=== PATIENT | female | born 1965 | race Caucasian/White ===

== ENCOUNTER → 2017-04-20 | Outpatient (CLI) | payer OTHER ==
[~2017-04-20] MED LIST: BUPR-102 PO; CLX/20 PO; DOCU100C; LISI-461 PO; MULT-506 PO; NRN300 PO; OMEG10002 PO; OMEP40CA PO; RANI150T85 PO; TRAZ50TA35 PO; pericolace
--- NOTE | 2017-04-20 11:12 | DIAGNOSTIC IMAGING REPORT ---
ADDENDUM Review of the images with Dr. Leonard confirms the fact that the catheter entering the low thoracic region extends superiorly to the level of T11. This is a separate catheter as compared to the electrode extending to the mid thoracic region. Electronically signed by: Tawanda Elizabeth M.D. 04/24/2017 9:39 AM Dictated Date/Time: 04/24/2017 9:37 AM ORIGINAL REPORT THORACIC SPINE 2 VIEWS CLINICAL HISTORY: Thoracic back pain. FINDINGS: AP and lateral views of the thoracic spine are correlated with CT scan of the thoracic spine dated 01/29/2014. The skeletal structures are osteopenic. There is no radiographic evidence of fracture or malalignment. Vertebral body height and alignment are maintained throughout the thoracic spine. The transverse processes and pedicles are grossly intact as seen on the frontal view. Intrathecal leads enter the central canal and the lower thoracic region. These terminate at the level of T7. The catheter leads are intact as imaged. The disc spaces are maintained. Cholecystectomy clips are identified in the right upper quadrant. The imaged lung parenchyma appears clear. IMPRESSION: 1. No acute bony abnormality is seen involving the thoracic spine. 2. Intrathecal catheter leads are in place as above. Dictated: 04/20/2017 10:12 AM Transcribed: 04/20/2017 11:12 AM [place] Electronically signed by: Andrea Pedroza M.D. 04/20/2017 11:18 AM Dictated Date/Time: 04/20/2017 10:12 AM
== END | disposition home or self-care (01) ==
LOC: C.RADBC 09:45
PROVIDERS: ATTEND Anesthesiology
DX: M54.6 Pain in thoracic spine (principal)

== ENCOUNTER 2018-12-09 07:35 | Observation (INO) ==
--- NOTE | 2018-12-06 07:58 | Anesthesiology Consultation ---
Date of Service December 06, 2018 Assessment & Plan (1) Encounter for pre-operative examination: Chart Review Chart Review: Acceptable Risk for Surgery and Patient NOT seen in Pre Admission Testing Consults Requested none History Surgery Operation Date: 12/09/18 08:40 Proposed Procedures p Left Breast Lumpectomy with Needle Localization and Left [place] Lymph Node Biopsy - Christiano Bradley MD, FACS Height/Weight Height: 5 ft 6 in Weight: 99.79 kg Allergies Allergy/AdvReac Type Severity Reaction Status Date / Time methadone AdvReac paresthesia Verified 12/05/18 14:51 s Medications Home Medications Medication Instructions Recorded Confirmed Last Taken bupropion HCl SR 150 mg tablet,12 150 mg PO QPM 01/07/18 12/05/18 04/22/18 23:45 hr sustained-release gabapentin 300 mg capsule 300 mg PO BID cap 01/07/18 12/05/18 04/22/18 23:45 lisinopril 10 mg tablet 10 mg PO QAM 01/07/18 12/05/18 04/22/18 14:00 omega-3 fatty acids 1,000 mg 1,000 - 2,000 mg PO BID cap 01/07/18 12/05/18 04/02/18 10:00 capsule omeprazole 40 mg capsule,delayed 40 mg PO QAM 01/07/18 12/05/18 04/22/18 14:00 release ranitidine 150 mg tablet 150 mg PO QPM 01/07/18 12/05/18 04/22/18 23:45 trazodone 150 mg tablet 150 mg PO HS tab 01/07/18 12/05/18 04/22/18 23:45 ascorbic acid (vitamin C) [Vitamin 1,000 mg PO QAM 04/02/18 12/05/18 04/22/18 14:00 C] bupropion HCl 200 mg PO QAM 04/02/18 12/05/18 04/22/18 14:00 docusate sodium [Dulcolax Stool 100 mg PO BID 04/02/18 12/05/18 04/22/18 23:45 Softener (dss)] escitalopram 10 mg tablet 20 mg PO QAM tab 06/11/18 12/05/18 Unknown ibuprofen 600 mg tablet 600 mg PO BID tab 06/11/18 12/05/18 Unknown multivitamin capsule 1 cap PO HS 06/11/18 12/05/18 Unknown morphine concentrate 1 unit INJ UD 12/05/18 12/05/18 Unknown Past Medical History Medical History Sleep apnea (Chronic) CPAP Migraine (Chronic) HX Hiatal hernia (Chronic) Osteoarthritis (Chronic) Intractable low back pain (Chronic) Sacroiliitis (Chronic) Tobacco abuse (Chronic) Presence of intrathecal pump (Resolved) History of suicide attempt (Resolved) Intentional overdose requiring intubation 2014 Depression (Chronic) Hypertension (Chronic) Anxiety (Chronic) GERD (gastroesophageal reflux disease) (Chronic) Degenerative joint disease (Chronic) Osteoporosis (Chronic) Breast cancer (Acute) left Arthritis Degenerative disc disease High cholesterol History of bronchitis Spinal stenosis Past Family History Family History Brother Family history of diabetes mellitus Diabetes 1/2 brother Grandmother Diabetes Mother Hypertension Heart disease Grandmother (Paternal) Breast cancer Father Heart disease Past Surgical History Surgical History Nausea and vomiting after administration of anesthetic agent Status post insertion of spinal cord stimulator (Resolved) NO LONGER FUNCTIONING History of lumbar laminectomy (Resolved) X 2 History of cholecystectomy (Resolved) History of tonsillectomy (Resolved) History of appendectomy (Resolved) H/O myringotomy History of bilateral tubal ligation History of colonoscopy History of esophagogastroduodenoscopy (EGD) S/P insertion of intrathecal pump 2013 and replaced in Apr 2018 Social History Smoking Status: Current every day smoker tobacco type: cigarettes Smoking cigarettes per day: 3-4 daily x 40 years Do You Dip or Chew Tobacco: No Hx Alcohol Use: Yes Alcohol type: beer alcohol intake frequency: holidays/special occasions only Hx Substance Use: No Testing Laboratory Results Laboratory Tests 12/04/18 12/04/18 14:23 14:23 WBC 6.16 Hgb 14.3 Plt Count 192 Sodium 142 Potassium 4.4 Chloride 107 Carbon Dioxide 31 BUN 14 Creatinine 0.80 Glucose 86 Electrocardiogram Date: 04/08/18 Normal sinus rhythm, rate 60 bpm Normal ECG No previous ECGs available Confirmed by El Mathis ([id number]) on 04/08/2018 8:27:52 PM
[~2018-12-09 07:35] MED LIST changes: -BUPR-102 PO; +CEFAZOLIN 2000MG 2,000 MG/15 ML SYR IV SCH; -CLX/20 PO; -DOCU100C; -LISI-461 PO; +LR 15ML/HR IV SCH; -MULT-506 PO; -NRN300 PO; -OMEG10002 PO; -OMEP40CA PO; -RANI150T85 PO; -TRAZ50TA35 PO; -pericolace
[2018-12-09] MEDS ORDERED: fentaNYL citrate 100 MCG/2 ML VIAL ONE (08:42)
[2018-12-09] MEDS ORDERED: MIDAZOLAM HCL 1 MG/ML 2ML VIAL ONE (08:42)
--- NOTE | 2018-12-09 09:05 | Nuclear Medicine Report ---
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 Topical anesthesia was applied to the left areola. Five Intradermal periareolar injections were performed utilizing a total dose of 0.5 mCi of techneti um 99m Lymphoseek. The patient was sent to the operating room for intraoperative localization. IMPRESSION: Successful left breast lymphoscintigraphy injection. Electronically signed by: Mello Acosta M.D. 12/09/2018 9:03 AM
[2018-12-09] MEDS ORDERED: BUPIVACAINE 0.5 % 5 MG/1 ML MPF 30ML VIAL ONE (09:30)
[2018-12-09] MEDS ORDERED: ePHEDrine sulfate 50 MG/ML AMP IV PRN (09:52)
[2018-12-09] MEDS ORDERED: HYDROmorphone INJ 2 MG/ML SYR/VIAL IV PRN (09:52)
[2018-12-09] MEDS ORDERED: ATROPINE SULFATE 0.1 MG/ML 10ML SYR IV PRN (09:52)
[2018-12-09] MEDS ORDERED: ONDANSETRON INJ 2 MG/ML 2 ML VIAL IV PRN ×2 (09:52→12:18)
[2018-12-09] MEDS ORDERED: PROMETHAZINE HCL 12.5 MG in SODIUM CHLORIDE 0.9% 50 ML IV PRN ×2 (09:52→12:18)
[2018-12-09] MEDS ORDERED: fentaNYL citrate 100 MCG/2 ML VIAL IV PRN (09:52)
[2018-12-09] MEDS ORDERED: METOCLOPRAMIDE HCL INJ 5 MG/ML 2 ML VIAL IV PRN (09:52)
--- NOTE | 2018-12-09 09:53 | History & Physical Bridge Note ---
Date of Service December 09, 2018 History & Physical Bridge Note I have examined the patient, reviewed the History & Physical and in the interval since the performance of the History & Physical I have noted the following changes of clinical significance: no changes noted
[2018-12-09] MEDS ORDERED: DEXAMETHASONE SOD INJ 4 MG/ML VIAL ONE (10:27)
[2018-12-09] MEDS ORDERED: NEOSTIGMINE METHYLSULFATE 5 MG/5 ML SYR ONE (10:27)
[2018-12-09] MEDS ORDERED: ROCURONIUM BROMIDE 10 MG/ML 5 ML VIAL ONE (10:27)
[2018-12-09] MEDS ORDERED: PROPOFOL IV EMULSION 10 MG/ML 20 ML VIAL IV ONE (10:27)
[2018-12-09] MEDS ORDERED: LIDOCAINE HCL 2% 2 ML VIAL/AMP(20MG/ML) INFIL ONE (10:27)
[2018-12-09] MEDS ORDERED: GLYCOPYRROLATE 0.2 MG/ML VIAL ONE (10:27)
[2018-12-09] MEDS ORDERED: ONDANSETRON INJ 2 MG/ML 2 ML VIAL ONE (10:27)
[2018-12-09] MEDS ORDERED: METHYLENE BLUE 0.5% 10 ML VIAL ONE (10:55)
--- NOTE | 2018-12-09 11:11 | Operative Report ---
PG Post Operative Report Pre & Post Diagnosis Operation Date: 12/09/18 10:30 Pre-Op Diagnosis: Intraductal Carcinoma in Situ Left Breast Post-Op Diagnosis: Intraductal Carcinoma in Situ Left Breast Procedure Operation Date: 12/09/18 10:30 Actual Procedures p Left Breast Lumpectomy with Needle Localization and Left [place] Lymph Node Biopsy(Left) - Christiano Bradley MD, FACS Surgeon Christiano Bradley MD, FACS Manager Purchasing Amara Horton Estimated Blood Loss 10 Findings Consistent with Post-Op Diagnosis Specimens Lt breast tissue and Lymph node Description of Procedure see dictation I attest to the content of the Intraoperative Record and any orders documented therein. Any exceptions are noted below.
[2018-12-09] MEDS ORDERED: METHYLENE BLUE 0.5% 10 ML VIAL TOP STA (11:12)
[2018-12-09] MEDS ORDERED: ACETAMINOPHEN 1,000 MG/100 ML VIAL IV ONE (11:19)
--- NOTE | 2018-12-09 11:34 | Operative Report ---
DATE OF OPERATION: 12/09/2018 NAME OF OPERATION: Left lumpectomy with sentinel lymph node biopsy. PREOPERATIVE DIAGNOSIS: Ductal carcinoma in situ, left breast. POSTOPERATIVE DIAGNOSIS: Ductal carcinoma in situ, left breast. STAFF SURGEON: Christiano Bradley MD SOFTBALL WINDER: Quentin Horton PA-C. ANESTHESIA: General. DESCRIPTION OF PROCEDURE: The patient was brought in the operating room and placed on the operating table in supine position. Left arm was extended on an arm board. My office assistant receptionist helped with prepping, draping, excision of the breast tissue and lymph node and also closure of the wounds. The patient had previously undergone needle localization left breast and also injection for sentinel lymph node biopsy. Initially, incision was made in the left axilla using 0.5% plain Marcaine to anesthetize skin and subcutaneous tissue in the axilla and breast. Dissection was carried down deeply in the left axilla, identifying the lymph node and sending it for frozen section. Frozen section was negative. During the frozen section, we performed lumpectomy. Elliptical incision was made around the needle which had been placed medially carrying dissection well around the needle. The tissue was marked, the needle and skin were anterior, long silk lateral, short silk medial and then a plain suture was inferior. This tissue was placed into the Faxitron. The imaged sent to Dr. Keane. The specimen was within the tissue. I took down additional superior and inferior tissue, marking it with long silk lateral, short silk medial, methylene blue new margin. We placed clips deep in the tissue at the level of the area of suspicion. Deep tissue was reapproximated in both wounds using 2-0 plain suture. Skin reapproximated in the breast using subcuticular 4-0 Monocryl with Steri-Strips. The left axilla skin was reapproximated using 4-0 nylon suture. The patient was transferred to recovery room in stable condition. I attest to the content of the Intraoperative Record and any orders documented therein. Any exception s are noted below.
[2018-12-09] MEDS ORDERED: ACETAMINOPHEN 1000 MG/100 ML IV IV ONE (11:38)
--- NOTE | 2018-12-09 12:11 | Anesthesiology Progress Note ---
Date of Service December 09, 2018 Anesthesia Post Procedure Vital Signs Vital Signs: Temp Pulse Pulse Resp BP BP Pulse Ox 12/09/18 12:00 36.4 C L 68 19 115/70 92 12/09/18 11:50 71 14 120/74 96 12/09/18 11:40 71 16 124/77 100 12/09/18 11:30 75 12 128/80 100 12/09/18 11:24 36.6 C 82 17 127/85 100 12/09/18 09:25 37.1 C 68 16 120/81 97 Pain Intensity Bilateral Back: Pain Intensity: 4 Left Breast: Pain Intensity: 3 Transfer of Care Handoff Completed per policy Notes Mental Status: alert / awake / arousable and participated in evaluation Patient Amnestic to Procedure: Yes Nausea / Vomiting: adequately controlled Pain: adequately controlled Airway Patency, RR, SpO2: stable & adequate BP & HR: stable & adequate Hydration State: stable & adequate Anesthetic Complications: no major complications apparent
[2018-12-09] MEDS ORDERED: PROMETHAZINE HCL 25 MG in SODIUM CHLORIDE 0.9% 50 ML IV PRN (12:18)
[2018-12-09] MEDS ORDERED: HYDROmorphone INJ 1 MG/ML SYRINGE IV PRN (12:18)
[2018-12-09] MEDS ORDERED: SODIUM CHLORIDE 0.9% 1000ML 1,000 ML IV SCH (12:18)
[2018-12-09] MEDS ORDERED: HYDROCODONE/ACETAMOPHEN 5/325MG TAB PO PRN (12:18)
[2018-12-09] MEDS ORDERED: IBUPROFEN 600 MG TAB PO PRN (12:18)
[2018-12-09] MEDS ORDERED: HYDROmorphone INJ 0.5 MG/0.5 ML SYR IV PRN (12:18)
--- NOTE | 2018-12-09 13:39 | Hospitalist Consultation ---
Date of Consultation December 09, 2018 Assessment & Plan (1) S/P breast lumpectomy: -POD# 0 left breast lumpectomy by Dr. 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 We will follow the patient with you during their hospital stay. You can reach a member of the [facility] Hospitalist Team 02/10 via pager @ [phone]. Supervising Physician Co-Signing Physician Notes I have seen and examined nurse practitioner and would like to comment that This is a patient under general surgery service Dr. Bradley with hospitalist medicine as consult service who on 12/09/18 had: Left lumpectomy with sentinel lymph node biopsy because of Ductal carcinoma in situ of left breast Medicine consult will continue to follow the patient overnight and management of pain control and blood pressure and will place labs for tomorrow Continuing home medications for other health issues as documented by nurse practitioner including medications for history of depression and anxiety such as bupropion and escitalopram and gabapentin, currently mood is stable. On Physical Exam General: no acute distress, verbal, able to eat crackers at the bedside Eyes: Extraocular movements intact HEENT: external exam normal Heart: regular rate and rhythm Lungs: clear to auscultation bilaterally Chest dressing over left chest Abdomen: soft, nontender, positive bowel sounds Extremities: moves extremities Neuro: alert and oriented to person, time and place Psych: normal affect My colleague Dr. Valdes will be following the patient as hospitalist physician starting on 12/10/2018 History of Present Illness Reason for Consultation: Post Op Medical Management Requesting Physician: Dr. Bradley Attending Physician: Dr. Hernandez History of Present Illness 53 year old female who is s/p left breast lumpectomy today by Dr. Bradley. Postoperatively, the patient is doing well. She reports her pain is well controlled. She denies chest pain shortness of breath. No abdominal pain or nausea. Denies lightheadedness, dizziness, diaphoresis. She has not voided since surgery. Allergies Allergy/AdvReac Type Severity Reaction Status Date / Time methadone AdvReac paresthesia Verified 12/09/18 09:18 s Home Medications Home Medications Medication Instructions Recorded Confirmed Type bupropion HCl SR 150 mg tablet,12 150 mg PO QPM 01/07/18 12/09/18 History hr sustained-release gabapentin 300 mg capsule 300 mg PO BID cap 01/07/18 12/05/18 History lisinopril 10 mg tablet 10 mg PO QAM 01/07/18 12/05/18 History omega-3 fatty acids 1,000 mg 1,000 - 2,000 mg PO BID cap 01/07/18 12/05/18 History capsule omeprazole 40 mg capsule,delayed 40 mg PO QAM 01/07/18 12/05/18 History release ranitidine 150 mg tablet 150 mg PO QPM 01/07/18 12/05/18 History trazodone 150 mg tablet 150 mg PO HS tab 01/07/18 12/05/18 History ascorbic acid (vitamin C) [Vitamin 1,000 mg PO QAM 04/02/18 12/09/18 History C] bupropion HCl 200 mg PO QAM 04/02/18 12/05/18 History docusate sodium [Dulcolax Stool 100 mg PO BID 04/02/18 12/09/18 History Softener (dss)] escitalopram 10 mg tablet 20 mg PO QAM tab 06/11/18 12/05/18 History ibuprofen 600 mg tablet 600 mg PO BID tab 06/11/18 12/09/18 History multivitamin capsule 1 cap PO HS 06/11/18 12/05/18 History morphine concentrate 1 unit INJ UD 12/05/18 12/09/18 History Patient History Medical History Sleep apnea (Chronic) CPAP Migraine (Chronic) HX Hiatal hernia (Chronic) Osteoarthritis (Chronic) Intractable low back pain (Chronic) Sacroiliitis (Chronic) Tobacco abuse (Chronic) Presence of intrathecal pump (Resolved) History of suicide attempt (Resolved) Intentional overdose requiring intubation 2014 Depression (Chronic) Hypertension (Chronic) Anxiety (Chronic) GERD (gastroesophageal reflux disease) (Chronic) Degenerative joint disease (Chronic) Osteoporosis (Chronic) Breast cancer (Acute) left Surgical History Nausea and vomiting after administration of anesthetic agent Status post insertion of spinal cord stimulator (Resolved) NO LONGER FUNCTIONING History of lumbar laminectomy (Resolved) X 2 History of cholecystectomy (Resolved) History of tonsillectomy (Resolved) History of appendectomy (Resolved) S/P breast biopsy (12/09/18) Left Breast Lumpectomy with Needle Localization and Left [place] Lymph Node Biopsy Dr. Bradley 12/09/18 Family History Mother ESRD (end stage renal disease) on dialysis Grandmother (Paternal) Breast cancer Father Heart disease Fatal [place] at age 55 Social History Preferred Language: Cymro Communication Ability: Effective Visual Impairment: No Limitations International Sales Manager Required: No Beliefs That Will Affect Care: None marital status: Current Living Situation: Spouse current occupational status: disabled Other Information That Helps Us Care for You: No Feels Safe at Home: Yes Safety Concerns: Feels Safe At This Time Smoking Status: Current every day smoker Tobacco Type: cigarettes ; Cigarettes Per Day: 5 to 7 cigarettes/day, heavier smoker in the past ; Do You Dip or Chew Tobacco: No ; Second Hand Exposure: No ; Tobacco Cessation Education Requested by Patient: No Hx Alcohol Use: Yes Alcohol type: beer Alcohol Intake Frequency: Holidays/Special Occasions Hx Substance Use: No Review of Systems Review of Systems: ROS per HPI, all other systems reviewed and negative Physical Exam Constitutional: WD/WN, vitals as above Eyes: PERRL, conjunctivae normal, anicteric sclerae ENMT: external ear and nose normal, oropharynx normal Respiratory: normal respiratory effort, lungs clear to auscultation Cardiovascular: Rate/Rhythm: regular rate and regular rhythm Vessels: normal peripheral pulses Extremities: no edema Chest (Breasts): Additional Comments: surgical dressing dry and intact to left breast Gastrointestinal (Abdomen): normal bowel sounds, soft, nontender, no hepatosplenomegaly Musculoskeletal: no cyanosis or clubbing, extremities motor strength 5/5 Skin: no rashes, warm and dry Neurologic: PERRL, EOMI, accommodation nl, no face palsy, no dysarthria Psychiatric: A+Ox3, euthymic affect Results & Data Vital Signs (Past 12 Hours) Vital Signs Temp Pulse Pulse Resp BP BP Pulse Ox 12/09/18 13:00 70 16 123/78 93 12/09/18 12:31 66 16 113/73 94 12/09/18 12:05 36.8 C 70 15 115/73 95 12/09/18 12:00 36.4 C L 68 19 115/70 92 12/09/18 11:50 71 14 120/74 96 12/09/18 11:40 71 16 124/77 100 12/09/18 11:30 75 12 128/80 100 12/09/18 11:24 36.6 C 82 17 127/85 100 12/09/18 09:25 37.1 C 68 16 120/81 97
[2018-12-09] MEDS ORDERED: INFLUENZA ADMINISTRATION CHARGE ONE (13:45)
[2018-12-09] MEDS ORDERED: INFLUENZA VIRUS QUAD VACCINE 0.5 ML SYR IM ONE (13:45)
[2018-12-09] MEDS: HYDROCODONE/ACETAMOPHEN 5/325MG TAB PO PRN ×2 (16:28→21:20)
[2018-12-09] MEDS: CEFAZOLIN 2000MG 2,000 MG/15 ML SYR IV SCH (17:56)
[2018-12-09] MEDS ORDERED: BuPROPion SR 150 MG TABCR PO SCH (21:00)
[2018-12-09] MEDS: GABAPENTIN 300 MG CAP PO SCH (21:11)
[2018-12-09] MEDS: DOCUSATE SODIUM 100 MG CAP PO SCH (21:12)
[2018-12-09] MEDS: TRAZODONE HCL 50 MG TAB PO SCH (21:13)
[2018-12-10] MEDS: HYDROCODONE/ACETAMOPHEN 5/325MG TAB PO PRN (02:45)
[2018-12-10] MEDS: CEFAZOLIN 2000MG 2,000 MG/15 ML SYR IV SCH (02:45)
[2018-12-10] MEDS: TRAZODONE HCL 50 MG TAB PO SCH (02:45)
[2018-12-10 06:04] LABS: Hematocrit (blood only) 40.6 % (37-47); Hemoglobin 13.6 g/dL (12.0-16.0); Mean Corpuscular Hemoglobin 32.5 pg (25-34); Mean Corpuscular Hgb Conc 33.5 g/dL (32-36); Mean Corpuscular Volume 96.9 fL (80-100); Mean Platelet Volume 10.5 fL (7.4-10.4); Platelet Count 158 K/uL (130-400); RDW Standard Deviation 42.4 fL (36.4-46.3); Red Blood Count 4.19 M/uL (4.2-5.4); White Blood Count 7.85 K/uL (4.8-10.8)
[2018-12-10 06:41] LABS: BUN Creatinine Ratio 18.5 (10-20); Calcium 8.6 mg/dl (8.5-10.1); Creatinine Clr Calc Pharmacy 101.5 ml/min; Est GFR (Non-African American) 89.7
[2018-12-10 07:05] VITALS: BP 109/73; PULSE 55; TEMP 98.2; O2SAT 95
--- NOTE | 2018-12-10 07:23 | Discharge Summary ---
PRINCIPAL DIAGNOSIS: Ductal carcinoma in situ, left breast. PROCEDURES: The patient underwent left breast lumpectomy with sentinel lymph node biopsy. HISTORY OF PRESENT ILLNESS: The patient is a 53-year-old female with biopsy proven ductal carcinoma in situ of the left breast. HOSPITAL COURSE: She was brought to the hospital on 12/09/2018 for definitive surgery. She underwent needle localization and then left breast lumpectomy with sentinel lymph node biopsy. The sentinel lymph node was negative. The patient tolerated the procedure well and has done well overnight and is felt stable for discharge home today to be seen in the surgical clinic next week.
[2018-12-10] MEDS: DOCUSATE SODIUM 100 MG CAP PO SCH (08:19)
[2018-12-10] MEDS: GABAPENTIN 300 MG CAP PO SCH (08:19)
[2018-12-10] MEDS ORDERED: lisinopriL 10 MG TAB PO SCH (09:00)
[2018-12-10] MEDS ORDERED: BuPROPion SR 100 MG TABCR PO SCH (09:00)
[2018-12-10] MEDS ORDERED: PANTOprazole 40 MG TAB PO SCH (09:00)
[2018-12-10] MEDS ORDERED: ESCITALOPRAM OXALATE 20 MG TAB PO SCH (09:00)
--- NOTE | 2018-12-26 08:31 | Mammography Report ---
NEEDLE LOCALIZATION LEFT BREAST: 12/09/2018 CLINICAL HISTORY: 53-year-old woman with recently diagnosed left breast high-grade ductal carcinoma i n situ. She presents for preoperative localization prior to lumpectomy. COMPARISON: Left breast stereotactic/tomosynthesis biopsy and post procedure mammograms dated 11/21/19 19, diagnostic spot magnification views 11/15/2018, screening mammograms 10/18/2018, 05/16/2013. PATIENT CONSENT: The risks of the procedure were explained to the patient and informed consent was ob tained. Specific risks include, nontarget localization, bleeding, damage to adjacent structures. A timeout was performed and the left breast was agreed as the site for preoperative localization. The patient denied eating or drinking anything this morning that would preclude anesthesia. PROCEDURE DESCRIPTION: Prior left breast imaging was reviewed and the hourglass shaped biopsy marker placed after stereotactic guided biopsy, with few adjacent residual calcifications, is the intended t arget for localization. With the patient in the seated position, the left breast was placed in media llateral compression. The skin of the medial left breast was cleansed with alcohol. 1% buffered Li docaine without epinephrine was administered as local anesthesia. A 5cm Diehl II needle and wire co mbination was inserted into the breast. Optimal positioning was confirmed and the wire was locked in place, leaving both the needle and wire within the breast, as per surgeon's preference. The entire p rocedure including approach and needle length were discussed with the operating surgeon prior to surg natalee. The patient tolerated the procedure well and there was no immediate complication. She was sent to the operating room in satisfactory condition. A specimen radiograph was obtained which demonstrates the localizing needle/wire combination, hourgla ss shaped biopsy marker and a few calcifications within the tissue compatible with successful preoper ative localization and subsequent surgical excision. Final pathology is pending. IMPRESSION: NEEDLE LOCALIZATION Status post left breast preoperative needle and wire localization for biopsy-proven DCIS in the upper inner left breast. The imaged specimen includes the intended abnormalities. Final surgical patholo gy is pending. Jaimee Keane M.D. ay/:12/09/2018 13:53:14 Attending Technologist: RT Ean(R)(M), [facility] Res Counselor: Viky Hobbs, [facility]; RT Yogesh,R, M, [facility]
== END 2018-12-10 09:39 | disposition home health service (06) ==
LOC: ASU 07:35 → 3N 07:35